=== PATIENT | female | born 1995 | race Caucasian/White ===

== ENCOUNTER 2017-07-19 23:47 | Emergency (ER) | payer OTHER ==
[~2017-07-19] VITALS: Ht 167.6 cm; Wt 71.6 kg
[~2017-07-19 23:47] MED LIST: ATARAX,VISTARIL50 MG PO; BIOTIN300 MCG PO; DULCOLAX5 MG PO; FLEXERIL10 MG PO; FLEXERIL5 MG PO; PERCOCET 5/31 TABLET PO
[2017-07-20] MEDS ORDERED: FLEXERIL10 MG PO (00:03)
[2017-07-20] MEDS ORDERED: NORCO 5/3251 TABLET PO (00:03)
[2017-07-20 00:53] VITALS: BP 122/66
== END 2017-07-20 00:55 | disposition home or self-care (01) ==
LOC: EME 23:47 → RME 23:47
DX: S46.911A Strain of unspecified muscle, fascia and tendon at shoulder and upper arm level, right arm, initial encounter (principal); S40.011A Contusion of right shoulder, initial encounter; W18.30XA Fall on same level, unspecified, initial encounter; Y93.68 Activity, volleyball (beach) (court); F17.200 Nicotine dependence, unspecified, uncomplicated; Z91.030 Bee allergy status
CPT/HCPCS: 73030; 99281; 99283

== ENCOUNTER 2017-09-11 21:59 | Emergency (ER) | payer OTHER ==
[~2017-09-11] VITALS: Ht 165.1 cm; Wt 70.8 kg
[~2017-09-11 21:59] MED LIST changes: +NORCO 5/3251 TABLET PO
[2017-09-12 01:03] VITALS: BP 116/62
== END 2017-09-12 01:10 | disposition home or self-care (01) ==
LOC: EME 21:59
DX: R51 Headache (principal); F41.9 Anxiety disorder, unspecified; F17.200 Nicotine dependence, unspecified, uncomplicated
CPT/HCPCS: 70450; 87651 90; 99281; 99284

== ENCOUNTER 2017-10-24 14:54 | Emergency (ER) | payer OTHER ==
[~2017-10-24] VITALS: Ht 165.1 cm; Wt 70.9 kg
[2017-10-24 15:21] VITALS: BP 128/78
== END 2017-10-24 19:19 | disposition home or self-care (01) ==
LOC: EME 14:54
DX: J06.9 Acute upper respiratory infection, unspecified (principal); F17.200 Nicotine dependence, unspecified, uncomplicated
CPT/HCPCS: 87651 90; 94640; 99281; 99284

== ENCOUNTER 2018-01-16 01:27 | Emergency (ER) | payer OTHER ==
[~2018-01-16] VITALS: Ht 167.6 cm; Wt 71.2 kg
[2018-01-16 01:32] VITALS: BP 143/71
[2018-01-16] MEDS ORDERED: NORCO 5/3251 TABLET PO (03:52)
[2018-01-16] MEDS ORDERED: FLEXERIL10 MG PO (03:52)
[2018-01-16] MEDS ORDERED: LIDOCAINE700 MG TP (03:52)
== END 2018-01-16 04:25 | disposition home or self-care (01) ==
LOC: EME 01:27
DX: S39.012A Strain of muscle, fascia and tendon of lower back, initial encounter (principal); M79.652 Pain in left thigh; X50.9XXA Other and unspecified overexertion or strenuous movements or postures, initial encounter; F17.200 Nicotine dependence, unspecified, uncomplicated
CPT/HCPCS: 72100; 99281; 99283